=== PATIENT | female | born 1970 | race Two or more races ===

== ENCOUNTER 2025-08-16 09:37 | Emergency (ER) | payer BC ==
[~2025-08-16] VITALS: Ht 157.5 cm; Wt 81.6 kg
[2025-08-16 10:19] LABS: PLATELET COUNT (AUTO) 298 K/uL (150-450); RED BLOOD CELL COUNT(AUTO) 4.59 MIL/uL (4.0-5.2); RED CELL DISTRIBUTION WIDTH 14.1 % (11.5-15.0); WHITE BLOOD COUNT (AUTO) 6.9 K/uL (4.3-11.0)
[2025-08-16 10:26] LABS: CALCIUM, SERUM 8.9 mg/dL (8.5-10.1); CREATININE 0.7 mg/dL (0.6-1.3); SODIUM SERUM 141 mmol/L (136-145); UREA NITROGEN, BLOOD 15 mg/dL (7-18)
[2025-08-16 10:40] LABS: ASPARTATE AMINOTRANSFERASE 25 U/L (15-37); NT-PRO BNP 128 pg/mL (0-125); TOTAL PROTEIN, SERUM 7.8 g/dL (6.4-8.2)
[2025-08-16] MEDS ORDERED: IOHEXOL-350 100 ML VIAL IV ONE (11:00)
[2025-08-16] MEDS ORDERED: IV NS 0.9% 250 ML IV ONE (11:01)
[2025-08-16 12:52] VITALS: BP 138/82; TEMP 97.9; O2SAT 98
== END 2025-08-16 12:53 | disposition home or self-care (01) ==
LOC: ER 09:45
DX: R07.89 Other chest pain (principal); R06.02 Shortness of breath; E78.5 Hyperlipidemia, unspecified; I11.0 Hypertensive heart disease with heart failure; I25.10 Atherosclerotic heart disease of native coronary artery without angina pectoris; I25.2 Old myocardial infarction; I44.4 Left anterior fascicular block; I50.9 Heart failure, unspecified
CPT/HCPCS: 99285; 71275; 71045; 93005; 85025; 80048; 80076; 85378; 36415; 84484 ×2; 83880; J7050; Q9967